=== PATIENT | female | born 1980 | race Caucasian/White ===

== ENCOUNTER 2017-11-18 08:26 | Inpatient (IN) | payer MEDICAID ==
[~2017-11-18 08:26] MED LIST: Dexamethasone 4 MG/ML SDV ONE; Glycopyrrolate 0.2 MG/ML 5 ML MDV ONE; Neostigmine Methylsulfate 1 MG/ML 5 ML Syringe ONE; Ondansetron 4 MG/2 ML SDV ONE; Propofol 200 MG/20 ML SDV ONE; Rocuronium 50 MG/5 ML Vial ONE; Succinylcholine 200 MG/10 ML MDV ONE; fentaNYL 250 MCG/5 ML SDV ONE
[2017-11-18] MEDS ORDERED: cefOXitin 2 GM in Sodium Chloride 0.9% 50 ML IV ONE (08:30)
[2017-11-18] MEDS ORDERED: Celecoxib 200 MG Cap PO ONE (08:30)
[2017-11-18] MEDS ORDERED: Gabapentin 300 MG Cap PO ONE (08:30)
[2017-11-18] MEDS ORDERED: Scopolamine 1.5 MG Transdermal Patch TOP ONE (08:30)
[2017-11-18] MEDS ORDERED: Acetaminophen 500 MG Tab PO ONE (08:30)
[2017-11-18] MEDS ORDERED: Dextrose 5%-Lactated Ringers 1,000 ML IV SCH (08:30)
[2017-11-18] MEDS ORDERED: cefOXitin 2 GM Vial ONE (09:53)
[2017-11-18] MEDS ORDERED: Lidocaine 0.4%/D5W 2 GM/500 ML BAG IV SCH (11:15)
[2017-11-18] MEDS ORDERED: Ketamine 500 MG/5 ML MDV IV SCH (11:15)
[2017-11-18] MEDS ORDERED: Lidocaine 2% 100 MG/5 ML Syringe IVPUSH ONE (11:15)
[2017-11-18] MEDS ORDERED: Ropivacaine 60 ML, Dexamethasone 8 MG, EPINEPHrine 0.4 MG, Sodium Chloride 0.9% 17.6 ML NERVRT SCH ×4 (11:15)
[2017-11-18] MEDS ORDERED: ePHEDrine 50 MG/ML SDV ONE (12:35)
[2017-11-18] MEDS ORDERED: fentaNYL 100 MCG/2 ML SDV ONE (13:20)
[2017-11-18] MEDS: Acetaminophen Soln 650 MG/20.3 ML UD Cup PO SCH ×2 (15:53→21:25)
[2017-11-18] MEDS ORDERED: diphenhydrAMINE 50 MG/ML SDV IVPUSH PRN (16:00)
[2017-11-18] MEDS ORDERED: Ondansetron 4 MG/2 ML SDV IVPUSH PRN (16:00)
[2017-11-18] MEDS ORDERED: Labetalol 20 MG/4 ML Syringe IVPUSH PRN (16:00)
[2017-11-18] MEDS ORDERED: Pantoprazole 40 MG Vial IVPUSH SCH (16:00)
[2017-11-18] MEDS ORDERED: hydrOXYzine HCl 100 MG/2 ML SDV IM PRN (16:00)
[2017-11-18] MEDS ORDERED: Metoclopramide 10 MG/2 ML SDV IVPUSH PRN (16:00)
[2017-11-18] MEDS ORDERED: MVI, Adult with Vitamin K 10 ML, Thiamine 200 MG, Chromium/Copper/Mang/Selen/Zn 1 ML in... IV SCH ×4 (16:00)
[2017-11-18] MEDS: cefOXitin 2 GM in Sodium Chloride 0.9% 50 ML IV SCH ×2 (16:36→23:01)
[2017-11-18] MEDS: Heparin Sodium 5,000 Units/ML Vial SUBCUT SCH (17:28)
[2017-11-18] MEDS: Gabapentin 250 MG/5 ML Solution ML 470 ML Bottle PO SCH (21:29)
[2017-11-18] MEDS: Dextrose 5%-Lactated Ringers 1,000 ML IV SCH (22:57)
[2017-11-19] MEDS ORDERED: Iohexol 647 MG/ML 50 ML SDV PO STA (02:34)
[2017-11-19] MEDS: Acetaminophen Soln 650 MG/20.3 ML UD Cup PO SCH ×4 (03:49→21:44)
[2017-11-19] MEDS: cefOXitin 2 GM in Sodium Chloride 0.9% 50 ML IV SCH (05:07)
[2017-11-19] MEDS: Dextrose 5%-Lactated Ringers 1,000 ML IV SCH (05:08)
[2017-11-19] MEDS: Heparin Sodium 5,000 Units/ML Vial SUBCUT SCH ×2 (05:52→18:14)
[2017-11-19] MEDS ORDERED: Ondansetron 4 MG Tab.DIS PO PRN (07:21)
[2017-11-19] MEDS ORDERED: Dextrose 5%-Lactated Ringers 1,000 ML IV SCH (07:30)
[2017-11-19] MEDS: Celecoxib 200 MG Cap PO SCH (07:36)
--- NOTE | 2017-11-19 08:45 | CR ---
UGI wo KUB HISTORY: eval R -Y GBP FINDINGS: After administration of oral contrast, upright views were obtained. Post operative changes gastric bypass. Surgical drains in place. No evidence for leak. Contrast passes freely into proximal small bowel loops which are mildly dilated. IMPRESSION: No evidence for leak or obstruction. Mild small bowel distention. Short-term repeat KUB recommended
--- NOTE | 2017-11-19 08:56 | PN ---
DATE OF SERVICE: 11/19/2017 SUBJECTIVE: Tracy's vital signs have been stable. Pain controlled. She has been up ambulating. Upper GI was normal. REVIEW OF SYSTEMS: Remainder of review of systems negative for any pertinent positives and negatives. OBJECTIVE: GENERAL: Tracy Giron is a 37-year-old female. VITAL SIGNS: TPR 97.4, 71, 18, blood pressure 100/58. HEENT: Negative. NECK: Supple. HEART: Regular rate and rhythm. LUNGS: Clear. ABDOMEN: Dressings dry and intact. TAWNYA drain is draining a light pink serosanguineous drainage. EXTREMITIES: Without peripheral edema. ASSESSMENT: Laparoscopic sleeve gastrectomy, liver biopsy, repair of diaphragmatic hernia for morbid obesity, hepatomegaly and diaphragmatic hernia. Date of surgery 11/18/2017. PLAN: 1. Dressing off, may shower. 2. Step 2 gastric bypass diet without cereal. 3. Decrease IV to 100 mL per hour. 4. Zofran ODT 4 mg q.4 hours p.r.n. nausea and vomiting. 5. If oral intake is adequate, may saline lock IV. 6. Communication orders, 3 med cups per hour or 1 every 20 minutes, record at bedside. 7. Good pulmonary toilet. 8. We will evaluate p.r.n. or in a.m. Zabrina Ayala PA-C /[id number]
[2017-11-19] MEDS: Gabapentin 250 MG/5 ML Solution ML 470 ML Bottle PO SCH ×3 (09:00→20:28)
[2017-11-19] MEDS: FLUoxetine 20 MG Cap PO SCH (10:47)
[2017-11-19] MEDS: SCOPOLAMINE PATCH CHECK TOP SCH (10:48)
[2017-11-19] MEDS ORDERED: MVI, Adult with Vitamin K 10 ML, Thiamine 200 MG, Chromium/Copper/Mang/Selen/Zn 1 ML in... IV SCH ×4 (16:00)
[2017-11-19] MEDS ORDERED: Pantoprazole 40 MG Delayed-Release Granules 1 Packet PO SCH (16:00)
[2017-11-20] MEDS: Heparin Sodium 5,000 Units/ML Vial SUBCUT SCH (05:11)
[2017-11-20] MEDS: Acetaminophen Soln 650 MG/20.3 ML UD Cup PO SCH ×2 (05:11→09:51)
[2017-11-20] MEDS: SCOPOLAMINE PATCH CHECK TOP SCH (08:35)
[2017-11-20] MEDS: Celecoxib 200 MG Cap PO SCH (08:35)
[2017-11-20] MEDS: Gabapentin 250 MG/5 ML Solution ML 470 ML Bottle PO SCH ×2 (08:35→13:21)
[2017-11-20] MEDS ORDERED: Cyanocobalamin (Vitamin B12) 1,000 MCG/ML SDV IM ONE (09:00)
[2017-11-20] MEDS: FLUoxetine 20 MG Cap PO SCH (09:50)
--- NOTE | 2017-11-21 12:41 | OR ---
DATE OF PROCEDURE: 11/18/2017 ADDENDUM: This addendum should be added to the end of the details of procedure section of the report. Physician library technical assistant, Zabrina Ayala, played an essential role in assisting in this case, helping to position the patient, retract structures as needed, as well as suturing and cutting sutures when indicated. Her presence improved the patient's safety and decreased the operative time. Ramesh Roy MD /[id number]
--- NOTE | 2017-11-22 08:00 | DISCH ---
FINAL DIAGNOSES: 1. Morbid obesity. 2. Hepatomegaly. 3. Paraesophageal diaphragmatic hernia. 4. History of depression. 5. History of obstructive sleep apnea. OPERATIVE PROCEDURES: Done on 11/18/2017 1. Diagnostic laparoscopy with: a. Laparoscopic sleeve gastrectomy. b. Kip-Cut needle liver biopsy. c. Repair of paraesophageal diaphragmatic hernia with mesh. HOSPITAL COURSE: In summary, this is a 37-year-old female presenting with longstanding morbid obesity and increasingly significant comorbidities. After preoperative evaluation and discussion, she wished to proceed with a sleeve gastrectomy. This was done on the date of the procedure. The patient was noted to have a fairly large paraesophageal diaphragmatic hernia, which was repaired concurrently with the crural repair augmented with a Phasix mesh, which is a dissolvable mesh, but will leave a significantly denser scar at the healing site. Postoperatively, she had no significant problems. She is tolerating a step-2 diet, i.e. a liquid diet, and will be sent on that for the next month. Otherwise, medications will be continued as preop, other than that we will have her hold her vitamins and supplements until the first appointment. She will have follow up with Zabrina Ayala at [facility] on 11/29/2017.
--- NOTE | 2017-11-22 08:45 | OR ---
DATE OF PROCEDURE: 11/18/2017 PREOPERATIVE DIAGNOSIS: Morbid obesity. POSTOPERATIVE DIAGNOSES: 1. Morbid obesity. 2. Marked hepatomegaly. 3. Paraesophageal diaphragmatic hernia. OPERATIVE PROCEDURES: 1. Laparoscopic sleeve gastrectomy (29577). 2. Kip-Cut needle liver biopsy (57852). 3. Repair of paraesophageal diaphragmatic hernia with mesh (36667). ANESTHESIA: General. CARDIAC CATH RN: Zabrina Ayala PA-C. INDICATION FOR PROCEDURE: This is a 37-year-old presenting with longstanding morbid obesity with increasingly significant comorbidities. After preoperative evaluation and discussion, she wished to proceed with a sleeve gastrectomy. Potential risks of the procedure including bleeding, infection, leaks from the GI tract closure lines, possibility of inadequate weight loss either in short or termite treater, and also the remote possibility of cardiopulmonary, septic, or hemorrhagic complications leading to were discussed, and the patient wishes to proceed. DETAILS OF PROCEDURE: The patient was taken to the operating room and after general endotracheal anesthesia was induced, she was placed in a lithotomy position, and the abdomen was prepped and draped. At 15 cm inferior and 5 cm left of the xiphoid process, a transverse incision was made and the peritoneal cavity was entered under direct vision with an Optiview trocar and inflated to 15 mmHg pressure with CO2. The laparoscope was reinserted and no underlying trocar insertion site injuries were seen. Bilateral subcostal transversus abdominis plane blocks were then placed with direct visualization of the needle tip in the correct plane confirmed via the laparoscopic vantage point and injection of the standard solution bilaterally. Following this, 4 additional trocars were placed across the upper and mid abdomen, and a general exploration was undertaken. The patient was noted to have a fairly significant hepatomegaly with the liver grossly fatty infiltrated. Kip-Cut needle biopsy was obtained from the left lobe of the liver. Minimal bleeding from the biopsy sites was controlled with electrocautery. With the liver now retracted anteriorly, the patient was noted to have a moderate-sized paraesophageal diaphragmatic hernia. This contained in addition to some of the perigastric fat and fundus of the stomach, a small tongue of omentum. This was reduced and peritoneum overlying re-incised and reflected downward. The esophagus was then dissected away from the crura on each side and a retroesophageal tunnel then created. The attachments to the esophagus were then teased such that there was roughly a 4 to 5 cm intraabdominal esophageal length and posterior crural repair was then accomplished with 0 Ethibond sutures reinforced with PTFE pledgets. To facilitate more dense scarring at the site of the repair, a segment of Phasix ST mesh was then placed over the crural repair. This was affixed on each side with some absorbable tacking screws, and at that point, the diaphragmatic hernia phase appeared to be satisfactorily completed. The omentum was then divided away from the stomach beginning in the area of the mid-greater curvature. This dissection continued proximally through the short gastric vessels including the highest and posterior short gastric vessels. The medial aspect of fundus was dissected further away from the left alexandr such that it was well skeletonized. The division of the omentum was then continued down 0.2 cm proximal to the pylorus. At that point, the initial firings for the resectional phase of the procedure were marked out with electrocautery beginning 2 cm proximal to the pylorus and then continuing underneath the incisura angularis with care taken to avoid overtightening of that area. The first 3 firings were done with standard VIKAS black loads. At that point, a 32-Thai suction tube was then placed per Anesthesia via the oral route and manipulated along the lesser curvature of the stomach. The remaining sleeve gastrectomy was then completed with a combination of reinforced black and purple loads. All staple lines appeared to be satisfactory at this point. The gastrectomy site was then reinforced with fibrin sealant. Omentum was pulled up over the length of the omentum and appeared to fix well through that area with the aid of the fibrin sealant. The tube that was used as the bougie, was then pulled roughly senior living up the stomach after release of suction with the pylorus being compressed. Air was then inflated, which potentially distended the remaining stomach. No leaks or other problems were noted from the staple lines. At this point, the stomach specimen was removed through the left lateral trocar site. A single Foster-Paez drain was then placed in the left lateral trocar site up against the proximal end of the gastrectomy staple line and from there into the splenic fossa. No further problems were noted. Trocars were removed. The fascia at the 12 and 15 mm sites was closed with 0 Vicryl stitch, and the skin with 4-0 Vicryl skin stitch. Dressing was applied. The patient was taken to the recovery room in satisfactory condition. Ramesh Roy MD /[id number]
== END 2017-11-20 13:56 | disposition home or self-care (01) | DRG 403 ==
LOC: JP.2SS 08:26 → JP.SDS 08:26 → EDSTATUS 09:00
PROVIDERS: ADMIT Surgery; ATTEND Surgery
PROC: 0DB64Z3 Excision of Stomach, Percutaneous Endoscopic Approach, Vertical (ICD-10-PCS; principal; 2017-11-18)
PROC: 3E0T3BZ Introduction of Anesthetic Agent into Peripheral Nerves and Plexi, Percutaneous Approach (ICD-10-PCS; 2017-11-18)
PROC: 0FB24ZX Excision of Left Lobe Liver, Percutaneous Endoscopic Approach, Diagnostic (ICD-10-PCS; 2017-11-18)
PROC: 0BUT4JZ Supplement Diaphragm with Synthetic Substitute, Percutaneous Endoscopic Approach (ICD-10-PCS; 2017-11-18)
DX: E66.01 Morbid (severe) obesity due to excess calories (principal); Z68.42 Body mass index [BMI] 45.0-49.9, adult; R16.0 Hepatomegaly, not elsewhere classified; K76.0 Fatty (change of) liver, not elsewhere classified; K44.0 Diaphragmatic hernia with obstruction, without gangrene; F41.9 Anxiety disorder, unspecified
CPT/HCPCS: 36415; 74240; 74240-26; 82962; 86850; 86900; 86901; 94762; A9270-GY; C1781; C9113; J0171; J0330; J0694; J1100; J1644; J2001; J2405; J2704; J2710; J2795; J3010; J3411; J3420; J3490; J7030; J7042; J7050; Q9967